=== PATIENT | female | born 2000 | race Caucasian/White ===

== ENCOUNTER 2024-02-23 13:20 | Emergency (ER) | payer MEDICAID ==
[~2024-02-23] VITALS: Ht 157.5 cm; Wt 91.6 kg
[2024-02-23 13:32] VITALS: TEMP 98.2
[2024-02-23 14:45] VITALS: PULSE 90; RESP 20; O2SAT 95
[2024-02-23] MEDS: ALBUTEROL (0.083%) 2.5MG/3ML NEB HHN ONE (14:57)
[2024-02-23] MEDS ORDERED: P50 MT (15:26)
[2024-02-23] MEDS ORDERED: ALBU18HF2 IH (15:26)
[2024-02-23 15:50] VITALS: BP 134/79; PULSE 76; RESP 17; O2SAT 98
[2024-02-23] MEDS: PREDNISONE 20MG TABLET PO ONE (15:50)
== END 2024-02-23 15:23 | disposition home or self-care (01) ==
LOC: ER 13:20
DX: J45.901 Unspecified asthma with (acute) exacerbation (principal)
CPT/HCPCS: 71045; 94640; 93005; 99283; J7512; Z7610 ×5

== ENCOUNTER 2024-03-03 19:55 | Emergency (ER) | payer MEDICAID ==
[~2024-03-03] VITALS: Ht 157.5 cm; Wt 93.2 kg
[~2024-03-03 19:55] MED LIST: ALBU18HF2 IH; P50 MT
[2024-03-03 20:00] VITALS: TEMP 98.6
[2024-03-03 20:03] VITALS: O2SAT 96
[2024-03-03] MEDS ORDERED: KETOROLAC 30MG/ML VIAL IM ONE (20:30)
[2024-03-03] MEDS ORDERED: PREDNISONE 20MG TABLET PO ONE (20:30)
[2024-03-03 20:50] VITALS: PULSE 86; RESP 20; O2SAT 98
[2024-03-03] MEDS: ALBUTEROL (0.083%) 2.5MG/3ML NEB HHN ONE ×2 (20:50→22:04)
[2024-03-03 22:05] VITALS: PULSE 86; RESP 18; O2SAT 99
[2024-03-03 22:16] VITALS: BP 116/72; PULSE 112
[2024-03-03] MEDS: KETOROLAC 30MG/ML VIAL IM NR (22:16)
[2024-03-03] MEDS: PREDNISONE 20MG TABLET PO NR (22:17)
[2024-03-03] MEDS ORDERED: P50 MT (23:04)
== END 2024-03-04 | disposition home or self-care (01) ==
LOC: ER 19:55
DX: J45.901 Unspecified asthma with (acute) exacerbation (principal)
CPT/HCPCS: 71045; 94640; 93005; 96372; 99283; J7512; J1885; Z7610 ×5